=== PATIENT | male | born 1955 | race Caucasian/White ===

== ENCOUNTER 2021-11-29 07:54 | Emergency (ER) | payer OTHER ==
[~2021-11-29] VITALS: Ht 193 cm; Wt 72.2 kg
--- NOTE | 2021-11-29 08:05 | PHYS DOC ---
Adult General Chief Complaint Chief Complaint: SHORTNESS OF BREATH HPI HPI Patient is a 65-year-old male presenting via EMS for shortness of breath. Patient was on the grounds at the [place] and made a call to EMS for shortness of breath. On arrival to his home, patient was found to be in the low 80s on room air, he was subsequently started on nasal cannula and then increased to a nonrebreather with improvement in O2 saturation. Attempts were made to transfer patient to [facility] hospital but they diverted patient to our facility for evaluation. On arrival, patient febrile, saturating in the mid 90s on 15 L nonrebreather otherwise hemodynamically stable. States he has history of COPD, hypertension, uncontrolled insulin-dependent diabetes, and is currently end-stage renal disease on hemodialysis. States he typically gets dialysis Wednesdays and Fridays, he last got dialysis 5 days ago and states that he has not been going because he has not felt good. States he has been fatigued with worsening shortness of breath. This morning he felt feeling feverish with chills with increased dyspnea and productive cough which is new for him prompting him to call EMS Review of Systems Review of Systems Fourteen body systems of review of systems have been reviewed. See HPI for pertinent positives and negative responses, other gonzalez all other systems are negative, non-pertinent or non-contributory Physical Exam Physical Exam Constitutional: Well developed, malnourished and frail, no acute distress, non- toxic appearance. Tall and slender. HENT: Normocephalic, atraumatic, bilateral external ears normal, oropharynx moist, no oral exudates, nose normal. Eyes: PERRLA, EOMI, conjunctiva normal, no discharge. Neck: Normal range of motion, no tenderness, supple, no stridor. Cardiovascular: Heart rate regular, sinus rhythm, no murmurs rubs or gallops Lungs & Thorax: Bilateral breath sounds clear to auscultation Abdomen: Bowel sounds normal, soft, no tenderness, no masses, no pulsatile masses. Nonsurgical abdomen, no peritoneal signs Skin: Warm, dry, no erythema, no rash. Back: No tenderness, no CVA tenderness. Extremities: No tenderness, no cyanosis, no clubbing, ROM intact, no edema. Right upper extremity AV fistula in place Neurologic: Alert and oriented X 3, cranial nerves II through XII intact, normal motor & sensory function, no focal deficits noted. Psychologic: Affect normal, judgement normal, mood normal. Current Patient Data Vital Signs Vital Signs Date Time Temp Pulse Resp B/P (MAP) Pulse Ox O2 Delivery O2 Flow Rate FiO2 11/29/21 07:56 102.2 106 33 152/94 (113) 93 Nasal Cannula 5.0 Vital Signs Date Time Temp Pulse Resp B/P (MAP) Pulse Ox O2 Delivery O2 Flow Rate FiO2 11/29/21 11:19 98.7 87 20 137/81 (99) 97 High Flow Nasal Cannula 10.0 Lab Results Laboratory Tests Test 11/29/21 08:45 11/29/21 08:58 11/29/21 09:00 11/29/21 09:05 SARS-CoV-2 Antigen (Rapid) Positive Glucose (Fingerstick) 257 mg/dL White Blood Count 7.6 x10^3/uL Red Blood Count 2.66 x10^6/uL Hemoglobin 8.3 g/dL Hematocrit 25.2 % Mean Corpuscular Volume 95 fL Mean Corpuscular Hemoglobin 31 pg Mean Corpuscular Hemoglobin Concent 33 g/dL Red Cell Distribution Width 16.0 % Platelet Count 166 x10^3/uL Neutrophils (%) (Auto) 89 % Lymphocytes (%) (Auto) 6 % Monocytes (%) (Auto) 4 % Eosinophils (%) (Auto) 1 % Basophils (%) (Auto) 1 % Neutrophils # (Auto) 6.7 x10^3uL Lymphocytes # (Auto) 0.5 x10^3/uL Monocytes # (Auto) 0.3 x10^3/uL Eosinophils # (Auto) 0.0 x10^3/uL Basophils # (Auto) 0.1 x10^3/uL Bedside Venous pH 7.31 Bedside Venous pCO2 35 mmHg Bedside Venous pO2 106 mmHg Venous Blood HCO3 18 mmol/L POC Venous O2 Saturation (John) 98 % Bedside FiO2 21 Sodium Level 137 mmol/L Potassium Level 5.3 mmol/L Chloride Level 101 mmol/L Carbon Dioxide Level 19 mmol/L Anion Gap 17 Blood Urea Nitrogen 55 mg/dL Creatinine 6.2 mg/dL Estimated GFR (Cockcroft-Gault) 9.1 BUN/Creatinine Ratio 9 Glucose Level 255 mg/dL Lactic Acid Level 0.9 mmol/L Calcium Level 7.6 mg/dL Phosphorus Level 5.9 mg/dL Magnesium Level 2.3 mg/dL Total Bilirubin 0.3 mg/dL Aspartate Amino Transf (AST/SGOT) 23 U/L Alanine Aminotransferase (ALT/SGPT) 27 U/L Alkaline Phosphatase 105 U/L Creatine Kinase 80 U/L Troponin I High Sensitivity 70 ng/L [id number] Natriuretic Peptide > 00639 pg/mL Total Protein 6.4 g/dL Albumin 3.5 g/dL Albumin/Globulin Ratio 1.2 Urine Collection Type Unknown Urine Color Straw Urine Clarity Hazy Urine pH 6.5 Urine Specific Mascot 1.020 Urine Protein >100 mg/dl Urine Glucose (UA) 500 mg/dL Urine Ketones (Stick) 15 mg/dL Urine Blood Mod Urine Nitrite Neg Urine Bilirubin Neg Urine Urobilinogen Dipstick 0.2 mg/dL Urine Leukocyte Esterase Neg Urine RBC >40 /HPF Urine WBC 0 /HPF Urine Squamous Epithelial Cells Few /LPF Urine Bacteria Few /HPF Urine Granular Casts Few /HPF Urine Mucus Slight /LPF Current Medications Medications (Trade) Dose Ordered Sig/Tracee Route PRN Reason Start Time Stop Time Status Last Admin Dose Admin Acetaminophen (Tylenol) 1,000 mg 1X ONCE PO 11/29/21 08:45 11/29/21 08:46 DC 11/29/21 09:05 Ceftriaxone Sodium 2 gm/ Sodium Chloride 100 ml @ 200 mls/hr 1X ONCE IV 11/29/21 08:45 11/29/21 09:14 DC 11/29/21 11:02 Azithromycin 500 mg/Sodium Chloride 250 ml @ 250 mls/hr 1X ONCE IV 11/29/21 09:00 11/29/21 09:59 DC 11/29/21 09:04 Calcium Gluconate (Calcium Gluconate) 1,000 mg 1X ONCE IV 11/29/21 08:45 11/29/21 08:46 DC 11/29/21 08:59 Sodium Chloride 250 ml @ As Directed STK-MED ONCE .ROUTE 11/29/21 08:24 11/29/21 08:24 DC Sodium Chloride 50 ml @ As Directed STK-MED ONCE .ROUTE 11/29/21 08:24 11/29/21 08:24 DC Azithromycin (Zithromax) 500 mg STK-MED ONCE IV 11/29/21 08:24 11/29/21 08:25 DC Ceftriaxone Sodium (Rocephin) 1 gm STK-MED ONCE .ROUTE 11/29/21 08:24 11/29/21 08:25 DC Ceftriaxone Sodium (Rocephin) 2 gm STK-MED ONCE IV 11/29/21 10:05 11/29/21 10:05 DC Sodium Chloride 100 ml @ As Directed STK-MED ONCE .ROUTE 11/29/21 10:05 11/29/21 10:06 DC Dexamethasone Sodium Phosphate (Decadron) 6 mg 1X ONCE IVP 11/29/21 10:45 11/29/21 10:46 DC 11/29/21 11:12 Insulin Human Regular (HumuLIN R VIAL) 5 unit 1X ONCE IV 11/29/21 11:00 11/29/21 11:01 DC 11/29/21 11:17 EKG EKG EKG ordered and interpreted by myself at 0815 hrs. as sinus tachycardia at 102 bpm, unremarkable intervals, right axis deviation, no obvious ischemic findings, concern for peaked T waves in anterolateral leads, no STEMI Radiology/Procedures Radiology/Procedures EXAM: CHEST 1 VIEW History: Shortness of breath COMPARISON: None available. TECHNIQUE: Single portable radiograph of the chest FINDINGS: The cardiac silhouette is unremarkable. Moderate prominent bilateral interstitial lung markings likely congestive changes or interstitial infiltrates The costophrenic sulci are clear and well demarcated. IMPRESSION: Moderate prominent bilateral interstitial lung markings likely congestive changes or interstitial infiltrates. Electronically signed by: Omer Hopkins MD (11/29/2021 10:21 AM) [id number] Heart Score C/O Chest Pain: No HEART Score for Chest Pain: HEART Score for Chest Pain Response (Comments) Value History Moderately Suspicious 1 ECG Nonspecific Repolarizatio 1 Age > 65 2 Risk Factors >3 Risk Factors or Hx CAD 2 Troponin < Normal Limit 0 Total 6 Risk Factors: Risk Factors: DM, Current or recent (<one month) smoker, HTN, HLP, family history of CAD, obesity. Risk Scores: Risk Factors: DM, Current or recent (<one month) smoker, HTN, HLP, family history of CAD, obesity. Course & Med Decision Making Course & Med Decision Making Airway patent, increased work of breathing, IV access and vitals obtained concerning for hypoxia on room air (88%), fever, tachycardia, and tachypnea HPI physical exam and comprehensive ER work-up obtained concerning for COVID-19 infection a vaccinated individual, sepsis with source being ENT/pulmonary in etiology, and fact that he is ESRD Wednesday with last dialysis session 5 days prior Patient's condition improved with supplemental oxygen, Tylenol, IV dexamethasone and Rocephin and azithromycin administration. Nonetheless he remains dependent on supplemental O2 despite ER evaluation which is not his baseline Patient [facility], as such I contacted [facility] and spoke with Dr. Olvera. We reviewed ER care provided in need for hospital transfer for admission which was granted I discussed entirety of ER work-up with patient and need for hospital transfer for which he was amenable. All questions and concerns addressed prior to hospital transfer Critical Care Time This patient required critical care. Due to the fact that the patient required a significant amount of one on one physician - patient contact time, ordering and review of studies, arranging urgent treatment with development of a management plan, evaluation of patients response to treatment with frequent reassessments, and discussions with other providers this patient required 35 minutes of critical care time. Critical care time was indicated due to the inherent instability and/or potential for instability in this patient. The critical care time that is allocated to this patient is above and beyond any time spent on any other billable procedures performed on this patient. Dragon Disclaimer Dragon Disclaimer This electronic medical record was generated, in whole or in part, using a voice recognition dictation system. Departure Departure: Impression: Primary Impression: COVID-19 Additional Impressions: ESRD on hemodialysis Uncontrolled type 2 diabetes mellitus with hyperglycemia Disposition: 02 SHORT TERM HOSPITAL ([facility]) Admitting Physician: Other (dr olvera) Condition: STABLE Problem Qualifiers TEODORO MILLAN DO Nov 29, 2021 08:05
[2021-11-29] MEDS ORDERED: IV NORMAL SALINE 50ML 50 ML ONE (08:24)
[2021-11-29] MEDS ORDERED: IV NORMAL SALINE 250ML 250 ML ONE (08:24)
[2021-11-29] MEDS ORDERED: cefTRIAXone SODIUM 1 GM VIAL ONE (08:24)
[2021-11-29] MEDS ORDERED: AZITHROMYCIN 500 MG VIAL. IV ONE (08:24)
[2021-11-29] MEDS ORDERED: ACETAMINOPHEN 500 MG TABLET PO ONE (08:45)
[2021-11-29] MEDS ORDERED: CALCIUM GLUCONATE 1,000 MG/10 ML VIAL IV ONE (08:45)
[2021-11-29] MEDS ORDERED: AZITHROMYCIN 500 MG in IV NORMAL SALINE 250ML 250 ML IV ONE (09:00)
[2021-11-29] MEDS ORDERED: IV NORMAL SALINE 100ML 100 ML ONE (10:05)
[2021-11-29 10:13] LABS: CALCIUM 7.6 mg/dL (8.5-10.1); CREATININE 6.2 mg/dL (0.7-1.3); GFR 9.1; POTASSIUM 5.3 mmol/L (3.5-5.1)
[2021-11-29 10:18] LABS: BASO # 0.1 x10^3/uL (0.0-0.2); BASO % 1 % (0-3); EOS % 1 % (0-3); HEMATOCRIT 25.2 % (39.0-53.0); HEMOGLOBIN 8.3 g/dL (13.0-17.5); LYMPH # 0.5 x10^3/uL (1.0-4.8); LYMPH % 6 % (24-48); MEAN CORPUSCULAR HEMOGLOBIN 31 pg (25-35); MEAN CORPUSCULAR HGB CONC 33 g/dL (31-37); MEAN CORPUSCULAR VOLUME 95 fL (79-100); MONO # 0.3 x10^3/uL (0.0-1.1); MONO % 4 % (0-9); NEUT # 6.7 x10^3uL (1.8-7.7); NEUT % 89 % (31-73); PLATELET COUNT 166 x10^3/uL (140-400); RED BLOOD COUNT 2.66 x10^6/uL (4.30-5.70); WHITE BLOOD COUNT 7.6 x10^3/uL (4.0-11.0)
[2021-11-29 10:20] LABS: ALBUMIN 3.5 g/dL (3.4-5.0); ALBUMIN/GLOBULIN RATIO 1.2 (1.0-1.7); MAGNESIUM 2.3 mg/dL (1.8-2.4); PHOSPHORUS 5.9 mg/dL (2.6-4.7); TOTAL BILIRUBIN 0.3 mg/dL (0.2-1.0); TOTAL PROTEIN 6.4 g/dL (6.4-8.2)
--- NOTE | 2021-11-29 10:23 | RAD ---
EXAM: CHEST 1 VIEW History: Shortness of breath COMPARISON: None available. TECHNIQUE: Single portable radiograph of the chest FINDINGS: The cardiac silhouette is unremarkable. Moderate prominent bilateral interstitial lung mar kings likely congestive changes or interstitial infiltrates The costophrenic sulci are clear and well demarcated. IMPRESSION: Moderate prominent bilateral interstitial lung markings likely congestive changes or interstitial inf iltrates. Electronically signed by: Omer Hopkins MD (11/29/2021 10:21 AM) [id number]
[2021-11-29 10:27] LABS: BILIRUBIN,URINE NEG (NEG); CLARITY,URINE HAZY; COLOR,URINE STRAW; GLUCOSE,URINE 500 mg/dL (NEG)
[2021-11-29 10:28] LABS: BACTERIA,URINE FEW /HPF (0-FEW); GRANULAR CASTS,URINE FEW /HPF; NITRITE,URINE NEG (NEG); RBC,URINE >40 /HPF (0-2); SQUAMOUS EPITHELIAL CELL,UR FEW /LPF; UROBILINOGEN,URINE 0.2 mg/dL (0.2 mg/dL); WBC,URINE 0 /HPF (0-4)
[2021-11-29] MEDS ORDERED: DEXAMETHASONE SOD PHOS 4 MG/ML VIAL. IVP ONE (10:45)
[2021-11-29] MEDS ORDERED: INSULIN REGULAR 100 UNIT/ML 3ML VIAL. IV ONE (11:00)
--- NOTE | 2021-11-29 11:15 | EKG ---
[address] [address] Test Date: 2021-11-29 Test Time: 08:10:57 Pat Name: MAYO SCHMITZ Department: Room: Gender: M [employer]: VU : [id number] Requested By: TEODORO MILLAN Order Number: [id number] Reading MD: Ru Lopez Measurements Intervals [place]tt Rate: 102 P: 234 IN: 98 QRS: 96 QRSD: 112 T: 81 QT: 356 QTc: 468 Interpretive Statements SINUS TACHYCARDIA RIGHTWARD AXIS Electronically Signed On 12-06-2021 17:56:22 TRANSCRIPTER by Ru Lopez
[2021-11-29 12:32] LABS: INFLUENZA A PATIENT NEGATIVE (NEGATIVE); INFLUENZA B PATIENT NEGATIVE (NEGATIVE)
[2021-11-29 13:26] VITALS: BP 145/74
== END 2021-11-29 13:57 | disposition short-term general hospital (02) ==
LOC: ER 07:54
DX: U07.1 COVID-19 (principal); I12.0 Hypertensive chronic kidney disease with stage 5 chronic kidney disease or end stage renal disease; E11.22 Type 2 diabetes mellitus with diabetic chronic kidney disease; E11.65 Type 2 diabetes mellitus with hyperglycemia; N18.6 End stage renal disease; Z99.2 Dependence on renal dialysis
CPT/HCPCS: 36415; 71045; 80053; 81001; 82550; 82803; 82947; 83605; 83735; 83880; 84100; 84484; 85025; 87040; 87426; 87804; 93005; 96365; 96366; 96368; 96375; 99291; C9803; J0456; J0610; J0696; J1100; J1815; J7050; U0003